=== PATIENT | male | born 1990 | race American Indian/Alaskan Native ===

== ENCOUNTER 2016-11-22 08:27 | Emergency (ER) | payer OTHER ==
[2016-11-22 08:48] VITALS: BP 124/82
[2016-11-22] MEDS ORDERED: NORCO 5/325 PO ONE (11:19)
--- NOTE | 2016-11-22 12:08 | XRay Report ---
RIGHT KNEE, 3 VIEWS: HISTORY: Right knee pain after injury. FINDINGS: There is normal bone mineralization. Surgery has been performed since 06/26/16 exam, correlate with history. There is a solitary metal screw through the proximal tibial metaphysis. A metallic clip is noted lateral to the distal femoral metaphysis. There is no evidence for acute fracture, joint pathology, bone lesion or large joint effusion. IMPRESSION: No acute process.
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
== END 2016-11-22 12:30 | disposition home or self-care (01) ==
LOC: ED 08:27
DX: M25.561 Pain in right knee (principal); F17.200 Nicotine dependence, unspecified, uncomplicated; V89.2XXS Person injured in unspecified motor-vehicle accident, traffic, sequela

== ENCOUNTER 2017-05-02 11:03 | Emergency (ER) | payer SELFPAY ==
[2017-05-02 11:37] VITALS: BP 116/77
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
[2017-05-02] MEDS ORDERED: FLEXERIL PO ONE (12:43)
[2017-05-02] MEDS ORDERED: TORADOL IM ONE (12:43)
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
== END 2017-05-02 13:28 | disposition home or self-care (01) ==
LOC: ED 11:03
DX: B35.3 Tinea pedis (principal); M79.672 Pain in left foot; F17.200 Nicotine dependence, unspecified, uncomplicated
CPT/HCPCS: 96372; 99282; J1885

== ENCOUNTER 2019-05-08 19:44 | Emergency (ER) | payer OTHER ==
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
[2019-05-08 21:04] VITALS: BP 124/89
--- NOTE | 2019-05-08 21:24 | XRay Report ---
PROCEDURE: XR SPINE LUMBOSACRAL 2-3V TECHNIQUE: Lumbar spine radiographs, AP, lateral, and coned-down views. HISTORY: BACK PAIN COMPARISONS: None . FINDINGS: Alignment: Normal . Vertebral body heights/Disk spaces: Normal . Fracture(s): None . Facets: Normal . Bone mineralization: Normal . IMPRESSION: Normal Examination . This document is electronically signed by Nichole Garcia MD., May 08 2019 09:22:31 PM ET
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
== END 2019-05-08 23:17 | disposition home or self-care (01) ==
LOC: ED 19:44
DX: S80.01XA Contusion of right knee, initial encounter (principal); Z79.899 Other long term (current) drug therapy; Z90.49 Acquired absence of other specified parts of digestive tract; V89.2XXA Person injured in unspecified motor-vehicle accident, traffic, initial encounter; Y93.89 Activity, other specified; Y92.488 Other paved roadways as the place of occurrence of the external cause; Y99.8 Other external cause status
CPT/HCPCS: 72100; 99283